=== PATIENT | male | born 1940 | race Caucasian/White ===

== ENCOUNTER 2017-08-15 07:19 | Day surgery (SDC) | payer MEDICARE ==
[2017-08-15 08:06] LABS: BUN 14 mg/dL (7-18)
[2017-08-15 08:08] LABS: LYMPH # 1.5 K/mm3 (0.7-4.5); LYMPH % 29.4 % (10-50)
[2017-08-15 08:10] LABS: GFR (ESTIMATED) 72 ML/MIN (>60)
[2017-08-15 08:13] LABS: HEMOGLOBIN 12.2 g/dL (14.1-18.0)
--- NOTE | 2017-08-15 09:43 | RADIOLOGY REPORT PS360 ---
CARDIAC CATHETERIZATION DATE OF CATHETERIZATION:08/15/2017 8:50 AM PROCEDURES: 1. Left heart catheterization 2. Left ventriculogram 3. Selective coronary angiogram INDICATION FOR TEST: 1. History of aortic valve replacement 2. Class IV angina 3. High pretest likelihood for coronary artery disease 4. Known CAD 5. Atrial fibrillation Informed consent was obtained prior to the procedure. COMPLICATIONS: None ESTIMATED BLOOD LOSS: Less than 10 ml. TECHNIQUE: One percent lidocaine used to anesthetize the right anterior aspect of the wrist. The right radial artery was accessed via the Seldinger technique. A 6 Dominican sheath was placed in the right radial artery. 2.5 mg of verapamil, 800 mcg of nitroglycerin and 5000 U Heparin were given through the arterial sheath. The trap catheter was also used to perform left heart catheterization and left ventriculography. At the end of the procedure the patient was transferred to the post-op holding area in stable condition for arterial sheath removal. ANGIOGRAPHIC RESULTS: 1. The left main artery normal 2. The left anterior descending artery has proximal and mid vessel 10% stenoses 3. The circumflex artery is a large dominant vessel and has proximal mid vessel 10% nonflow limiting stenoses 4. The right coronary artery is a nondominant vessel and has proximal mild to moderate vascular ectasia 5. The SANTILLAN ventriculogram reveals ejection fraction 55% 6. The left ventricular end-diastolic pressure elevated at 20 mmHg IMPRESSION: 1. Mild nonflow limiting coronary artery disease with an area of mild to moderate vascular ectasia in the nondominant right coronary artery 2. Preserved ejection fraction 3. Mildly elevated LVEDP PLAN: 1. Medical management 2. Treatment of hypertension 3. Risk factor modification
[2017-08-15 12:46] VITALS: BP 97/55
== END 2017-08-15 13:04 | disposition home or self-care (01) ==
LOC: CATHLAB 07:19
PROVIDERS: Internal Medicine
PROC: B2111ZZ Fluoroscopy of Multiple Coronary Arteries using Low Osmolar Contrast (ICD-10-PCS; 2017-08-15)
PROC: B2151ZZ Fluoroscopy of Left Heart using Low Osmolar Contrast (ICD-10-PCS; 2017-08-15)
PROC: 4A023N7 Measurement of Cardiac Sampling and Pressure, Left Heart, Percutaneous Approach (ICD-10-PCS; principal; 2017-08-15 08:30)
DX: I25.119 Atherosclerotic heart disease of native coronary artery with unspecified angina pectoris (principal); Z95.0 Presence of cardiac pacemaker; R06.09 Other forms of dyspnea; I48.2 Chronic atrial fibrillation; Z79.01 Long term (current) use of anticoagulants
CPT/HCPCS: C1725; C1760; C1769; J1644; Q9967